=== PATIENT | female | born 1945 | race Caucasian/White ===

== ENCOUNTER → 2016-09-11 | Outpatient (CLI) | payer MEDICARE, MEDICAID ==
--- NOTE | 2016-09-11 19:00 | EKG REPORT ---
SEVERITY:- ABNORMAL ECG - SINUS RHYTHM INCOMPLETE RIGHT BUNDLE BRANCH BLOCK : Confirmed by: Asher Taylor 11-Sep-2016 18:59:34
== END ==
LOC: OD 11:41
PROVIDERS: ATTEND Nurse Practitioner
DX: R06.02 Shortness of breath (principal); I10 Essential (primary) hypertension
CPT/HCPCS: 71020; 93005; 93010

== ENCOUNTER 2017-02-09 13:28 | Emergency (ER) | payer MEDICARE, MEDICAID ==
[2017-02-09 13:39] VITALS: BP 146/80
--- NOTE | 2017-02-09 13:42 | ER Document Report ---
ED Medical Screen (RME) - General Chief Complaint: Breathing Difficulty Stated Complaint: SHORTNESS OF BREATH Time Seen by Provider: 02/09/17 13:39 Mode of Arrival: Ambulatory Information source: Patient TRAVEL OUTSIDE OF THE [place] IN LAST 30 DAYS: No - HPI Patient complains to provider of: Dyspnea on exertion Onset: Yesterday Notes: 02/09/17 13:42 Patient is a 71-year-old female presenting to the emergency room today complaining of dyspnea on exertion that started sometime yesterday, she denies any fevers, no chest pain, no lower extremity edema, she does have a nonproductive cough, no history of similar symptoms previously - Related Data Allergies/Adverse Reactions: acetaminophen [From Darvocet-N 100] Allergy (Verified 02/09/17 13:38) propoxyphene [From Darvon] Allergy (Verified 02/09/17 13:38) Past Medical History Renal/ Medical History: Denies: Hx Peritoneal Dialysis Physical Exam - Vital signs Vitals: Temp Pulse Resp BP Pulse Ox 98.1 F 101 H 20 146/80 H 95 02/09/17 13:35 02/09/17 13:35 02/09/17 13:35 02/09/17 13:35 02/09/17 13:35 Course - Vital Signs Vital signs: Temp Pulse Resp BP Pulse Ox 98.1 F 101 H 20 146/80 H 95 02/09/17 13:35 02/09/17 13:35 02/09/17 13:35 02/09/17 13:35 02/09/17 13:35
--- NOTE | 2017-02-09 14:25 | RADIOLOGY REPORT (SQ) ---
EXAM DESCRIPTION: CHEST PA/LAT COMPLETED DATE/TIME: 02/09/2017 2:16 pm REASON FOR STUDY: sob COMPARISON: 09/11/2016 EXAM PARAMETERS: NUMBER OF VIEWS: two views TECHNIQUE: Digital Frontal and Lateral radiographic views of the chest acquired. RADIATION DOSE: NA LIMITATIONS: none FINDINGS: LUNGS AND PLEURA: The lungs are somewhat hyperexpanded. There is no pulmonary infiltrate or pleural effusion. MEDIASTINUM AND HILAR STRUCTURES: No masses or contour abnormalities. HEART AND VASCULAR STRUCTURES: Heart normal size. No evidence for failure. BONES: No acute findings. HARDWARE: None in the chest. OTHER: No other significant finding. IMPRESSION: NO SIGNIFICANT RADIOGRAPHIC FINDING IN THE CHEST. TECHNICAL DOCUMENTATION: JOB ID: [id number] [employer]- All Rights Reserved
[2017-02-09 14:26] LABS: ABSOLUTE BASOPHILS # (AUTO) 0.1 10^3/uL (0.0-0.2); ABSOLUTE EOSINOPHILS # (AUTO) 0.3 10^3/uL (0.0-0.6); ABSOLUTE LYMPHOCYTES (AUTO) 1.6 10^3/uL (0.5-4.7); ABSOLUTE MONOCYTES (AUTO) 0.6 10^3/uL (0.1-1.4); ABSOLUTE NEUT (AUTO) 4.3 10^3/uL (1.7-8.2); BASOPHILS % (AUTO) 0.9 % (0-2); EOSINOPHILS % (AUTO) 4.9 % (0-6); HEMATOCRIT 39.8 % (36.0-47.0); HEMOGLOBIN 13.4 g/dL (12.0-15.5); HGB HCT DIFFERENCE 0.4; LYMPHOCYTES % (AUTO) 22.8 % (13-45); MEAN CORPUSCULAR HEMOGLOBIN 31.1 pg (27.0-33.4); MEAN CORPUSCULAR HGB CONC 33.7 g/dL (32.0-36.0); MEAN CORPUSCULAR VOLUME 93 fl (80-97); MONOCYTES % (AUTO) 8.2 % (3-13); RED BLOOD COUNT 4.31 10^6/uL (3.72-5.28); RED CELL DISTRIBUTION WIDTH 13.8 % (11.5-14.0); SEGMENTED NEUTROPHILS % (AUTO) 63.2 % (42-78); WHITE BLOOD COUNT 6.8 10^3/uL (4.0-10.5)
[2017-02-09 14:56] LABS: ALANINE AMINOTRANSFERASE 23 U/L (9-52); ALBUMIN 4.4 g/dL (3.5-5.0); ALKALINE PHOSPHATASE 154 U/L (38-126); ANION GAP 11 (5-19); ASPARTATE AMINO TRANSFERASE 27 U/L (14-36); BILIRUBIN,DIRECT 0.4 mg/dL (0.0-0.4); BILIRUBIN,TOTAL 0.5 mg/dL (0.2-1.3); BLOOD UREA NITROGEN 18 mg/dL (7-20); CALCIUM 10.3 mg/dL (8.4-10.2); CARBON DIOXIDE 29 mmol/L (22-30); CHLORIDE 101 mmol/L (98-107); CREATINE KINASE 57 U/L (30-135); CREATININE RESULT 0.55 mg/dL (0.52-1.25); GLUCOSE 128 mg/dL (75-110); POTASSIUM 3.5 mmol/L (3.6-5.0); SODIUM 140.9 mmol/L (137-145); TOTAL PROTEIN 6.4 g/dL (6.3-8.2)
[2017-02-09 15:08] LABS: CREATINE KINASE MB 1.27 ng/mL (<4.55)
[2017-02-09 15:09] LABS: TROPONIN I < 0.012 ng/mL
[2017-02-09] MEDS ORDERED: PREDNISONE 20 MG TABLET PO ONE (15:24)
[2017-02-09] MEDS ORDERED: ALBUTEROL SULFATE 0.083% NEB 2.5 MG/3 ML AMPUL NEB ONE (15:24)
[2017-02-09] MEDS ORDERED: IPRATROPIUM/ALBUTEROL 0.5-2.5 MG/3 ML AMPUL NEB ONE (15:24)
[2017-02-09] MEDS ORDERED: ALBUTEROL SULFATE HFA (90 MCG/PUFF) 8 GM MDI (1 MDI/ER DISP) IH ONE (16:52)
--- NOTE | 2017-02-09 16:55 | ER Document Report ---
ED General - General Chief Complaint: Breathing Difficulty Stated Complaint: SHORTNESS OF BREATH Time Seen by Provider: 02/09/17 13:39 Mode of Arrival: Ambulatory TRAVEL OUTSIDE OF THE [place] IN LAST 30 DAYS: No - HPI Patient complains to provider of: Shortness of breath Notes: Patient coming in for evaluation of shortness of breath. Patient denies any fevers chills nausea vomiting chest pain patient denies a history of smoking patient states started over the last 3 days progressively worse this morning. Patient states mostly dyspnea on exertion. Denies any recent antibiotics. Denies productive cough. Patient is resting comfortably upon my evaluation. - Related Data Allergies/Adverse Reactions: acetaminophen [From Darvocet-N 100] Allergy (Verified 02/09/17 13:38) propoxyphene [From Darvon] Allergy (Verified 02/09/17 13:38) Past Medical History - General Information source: Patient - Social History Smoking Status: Former Smoker Chew tobacco use (# tins/day): No Frequency of alcohol use: Occasional Drug Abuse: None Family History: Reviewed & Not Pertinent Patient has suicidal ideation: No - Past Medical History Cardiac Medical History: Reports: Hx Hypertension Pulmonary Medical History: Reports: Hx Asthma Renal/ Medical History: Denies: Hx Peritoneal Dialysis Past Surgical History: Reports: Hx Abdominal Surgery - hernia repair, Hx Appendectomy, Hx Hysterectomy Review of Systems - Review of Systems Constitutional: No symptoms reported EENT: No symptoms reported Cardiovascular: No symptoms reported Respiratory: Short of breath, Wheezing Gastrointestinal: No symptoms reported Genitourinary: No symptoms reported Female Genitourinary: No symptoms reported Musculoskeletal: No symptoms reported Skin: No symptoms reported Hematologic/Lymphatic: No symptoms reported Neurological/Psychological: No symptoms reported -: Yes All other systems reviewed and negative Physical Exam - Vital signs Vitals: Temp Pulse Resp BP Pulse Ox 98.1 F 101 H 20 146/80 H 95 02/09/17 13:35 02/09/17 13:35 02/09/17 13:35 02/09/17 13:35 02/09/17 13:35 Interpretation: Normal - General General appearance: Appears well, Alert - HEENT Head: Normocephalic, Atraumatic Eyes: Normal Pupils: PERRL - Respiratory Respiratory status: No respiratory distress Chest status: Nontender Breath sounds: Wheezing Chest palpation: Normal - Cardiovascular Rhythm: Regular Heart sounds: Normal auscultation Murmur: No - Abdominal Inspection: Normal Distension: No distension Bowel sounds: Normal Tenderness: Nontender Organomegaly: No organomegaly - Back Back: Normal, Nontender - Extremities General upper extremity: Normal inspection, Nontender, Normal color, Normal ROM , Normal temperature General lower extremity: Normal inspection, Nontender, Normal color, Normal ROM , Normal temperature, Normal weight bearing. No: Paolo's sign - Neurological Neuro grossly intact: Yes Cognition: Normal Orientation: AAOx4 Vina Coma Scale Eye Opening: Spontaneous Steve Coma Scale Verbal: Oriented Steve Coma Scale Motor: Obeys Commands Vina Coma Scale Total: 15 Speech: Normal Motor strength normal: LUE, RUE, LLE, RLE Sensory: Normal - Psychological Associated symptoms: Normal affect, Normal mood - Skin Skin Temperature: Warm Skin Moisture: Dry Skin Color: Normal Course - Re-evaluation Re-evalutation: 02/09/17 18:17 Patient feeling better after breathing treatments more likely underlying reactive airway disease. Patient will be discharged on follow-up primary care physician. - Vital Signs Vital signs: Temp Pulse Resp BP Pulse Ox 98.1 F 101 H 20 146/80 H 95 02/09/17 13:35 02/09/17 13:35 02/09/17 13:35 02/09/17 13:35 02/09/17 13:35 - Laboratory Result Diagrams: 02/09/17 13:55 02/09/17 13:55 Laboratory results interpreted by me: 02/09/17 13:55 Potassium 3.5 L Glucose 128 H Calcium 10.3 H Alkaline Phosphatase 154 H Discharge - Discharge Clinical Impression: Reactive airway disease Qualifiers: Asthma severity: unspecified severity Asthma complication type: uncomplicated Qualified Code(s): J45.909 - Unspecified asthma, uncomplicated Condition: Good Disposition: HOME, SELF-CARE Instructions: Bronchodilators ([facility]), Reactive Airway Disease ([facility]) Additional Instructions: Your laboratory studies not show any signs of significant pathology. More likely you have reactive airway disease which is due to your allergies any air or the weather changes. Please use the inhaler that we gave you here in the ER 2 puffs every 4 hours please take steroids as prescribed return to the ER symptoms worsen. Prescriptions: Prednisone [Deltasone 20 mg Tablet] 3 tab PO DAILY 5 Days tablet Referrals: MANDI,ATRAH, PA-C [Primary Care Provider] - Follow up as needed
--- NOTE | 2017-02-09 17:22 | EKG REPORT ---
SEVERITY:- BORDERLINE ECG - SINUS RHYTHM PROBABLE LEFT ATRIAL ABNORMALITY : Confirmed by: Asher Taylor 09-Feb-2017 17:21:29
== END 2017-02-09 17:37 | disposition home or self-care (01) ==
LOC: ER 13:28
DX: J45.909 Unspecified asthma, uncomplicated (principal); R06.02 Shortness of breath; R06.00 Dyspnea, unspecified; Z87.891 Personal history of nicotine dependence
CPT/HCPCS: 93005; 94640 ×2; 99285; 36415; 82553; 82550; 85025; 80053; 84484; 83880; 71020; 93010; A9270 ×3; J3490; J7512; J7620

== ENCOUNTER 2017-02-19 00:04 | Emergency (ER) | payer MEDICAID, MEDICARE ==
--- NOTE | 2017-02-19 01:09 | ER Document Report ---
ED Respiratory Problem - General Chief Complaint: Breathing Difficulty Stated Complaint: DIFFICULTY BREATHING Time Seen by Provider: 02/19/17 01:05 Notes: The patient is a 71-year-old female who presents with 2 days of cough, wheezing , dyspnea on exertion and now SOB at rest. She had similar symptoms 10 days ago and was started on 5 days of prednisone and albuterol, with relief of her symptoms. Her symptoms have now returned and worsened. She denies cough, hematemesis, hemoptysis, leg swelling, numbness, tingling, chest pain, headache or back pain. TRAVEL OUTSIDE OF THE [place] IN LAST 30 DAYS: No - Related Data Allergies/Adverse Reactions: acetaminophen [From Darvocet-N 100] Allergy (Verified 02/19/17 00:16) propoxyphene [From Darvon] Allergy (Verified 02/19/17 00:16) Past Medical History - General Information source: Patient - Social History Smoking Status: Former Smoker - Quit 12 years ago Family History: Reviewed & Not Pertinent Patient has suicidal ideation: No Patient has homicidal ideation: No - Past Medical History Cardiac Medical History: Reports: Hx Hypertension Pulmonary Medical History: Reports: Hx Asthma Renal/ Medical History: Denies: Hx Peritoneal Dialysis Past Surgical History: Reports: Hx Abdominal Surgery - hernia repair, Hx Appendectomy, Hx Hysterectomy Review of Systems - Review of Systems Notes: REVIEW OF SYSTEMS: CONSTITUTIONAL: -fevers, -chills EENT: -eye pain, -difficulty swallowing, -nasal congestion CARDIOVASCULAR:-chest pain, -syncope. RESPIRATORY: -cough, +SOB GASTROINTESTINAL: -abdominal pain, -nausea, -vomiting, -diarrhea GENITOURINARY: -dysuria, -hematuria MUSCULOSKELETAL: -back pain, -neck pain SKIN: -rash or skin lesions. HEMATOLOGIC: -easy bruising or bleeding. LYMPHATIC: -swollen, enlarged glands. NEUROLOGICAL: -altered mental status or loss of consciousness, -headache, - neurologic symptoms PSYCHIATRIC: -anxiety, -depression. ALL OTHER SYSTEMS REVIEWED AND NEGATIVE. Physical Exam - Vital signs Vitals: Pulse Resp BP Pulse Ox 85 20 127/66 H 93 02/19/17 00:15 02/19/17 00:15 02/19/17 00:15 02/19/17 00:15 - Notes Notes: PHYSICAL EXAMINATION: GENERAL: Well-appearing, well-nourished and in no acute distress. HEAD: Atraumatic, normocephalic. EYES: Pupils equal round and reactive to light, extraocular movements intact, sclera anicteric, conjunctiva are normal. ENT: nares patent, oropharynx clear without exudates. Moist mucous membranes. NECK: Normal range of motion, supple without lymphadenopathy LUNGS: Wheezing in right upper lobe HEART: Regular rate and rhythm without murmurs ABDOMEN: Soft, nontender, normoactive bowel sounds. No guarding, no rebound. No masses appreciated. EXTREMITIES: Normal range of motion, no pitting or edema. No cyanosis. NEUROLOGICAL: Cranial nerves grossly intact. Normal speech, normal gait. Normal sensory and motor exams. PSYCH: Normal mood, normal affect. SKIN: Warm, Dry, normal turgor, no rashes or lesions noted. Course - Re-evaluation Re-evalutation: Patient's wheezing improved after DuoNeb and Solu-Medrol. She has a troponin of 0.986, but no evidence of a STEMI on EKG. Her troponin 10 days ago was negative. Her only symptoms are shortness of breath and dyspnea on exertion, but she never had any chest pain. Patient provided with aspirin and started on Lovenox. Pt also has a leukocytosis, but no evidence of infection. This is most likely related to her recent steroid use. She is requesting transfer to [facility] for further evaluation by interventional cardiology for NSTEMI. Spoke to [facility] at 02:30. 02/19/17 03:43 Spoke to Rivka ([facility]) and she has accepted patient under Dr. Morel's service. Awaiting bed assignment. Pt continues without chest pain. - Vital Signs Vital signs: Temp Pulse Resp BP Pulse Ox 85 17 126/67 H 96 02/19/17 00:15 02/19/17 01:08 02/19/17 01:08 02/19/17 01:08 - Laboratory Result Diagrams: 02/19/17 01:34 02/19/17 01:34 Laboratory results interpreted by me: 02/19/17 02/19/17 01:34 01:34 WBC 14.5 H Abs Neuts (Manual) 11.7 H Sodium 136.1 L Chloride 96 L BUN 21 H Creatinine 0.46 L Glucose 122 H AST 40 H Alkaline Phosphatase 138 H - Diagnostic Test Radiology reviewed: Image reviewed, Reports reviewed Radiology results interpreted by me: CXR: NAD. Emphysematous changes. - EKG Interpretation by Me EKG shows normal: Sinus rhythm, [place], Intervals, QRS Complexes When compared to previous EKG there are: Changes noted Additional EKG results interpreted by me: ST depression in V3-V5, no STEMI Discharge - Discharge Clinical Impression: NSTEMI (non-ST elevated myocardial infarction), KINSEY (dyspnea on exertion) Condition: Stable Disposition: [facility] Referrals: TARAH RAYMOND PA-C [Primary Care Provider] - Follow up as needed
[2017-02-19] MEDS ORDERED: PREDNISONE 20 MG TABLET PO ONE (01:32)
[2017-02-19] MEDS ORDERED: IPRATROPIUM/ALBUTEROL 0.5-2.5 MG/3 ML AMPUL NEB ONE (01:32)
--- NOTE | 2017-02-19 01:48 | RADIOLOGY REPORT (SQ) ---
EXAM DESCRIPTION: CHEST PA/LAT COMPLETED DATE/TIME: 02/19/2017 1:20 am REASON FOR STUDY: sob COMPARISON: 02/09/2017. EXAM PARAMETERS: NUMBER OF VIEWS: two views TECHNIQUE: Digital Frontal and Lateral radiographic views of the chest acquired. RADIATION DOSE: NA LIMITATIONS: none FINDINGS: LUNGS AND PLEURA: No opacities, masses or pneumothorax. No pleural effusion. Moderate emp hysematous hyperinflation. MEDIASTINUM AND HILAR STRUCTURES: No masses or contour abnormalities. HEART AND VASCULAR STRUCTURES: Heart normal size. No evidence for failure. Atherosclerosis. BONES: No acute findings. HARDWARE: None in the chest. OTHER: No other significant finding. IMPRESSION: No acute cardiopulmonary findings. Moderate emphysematous hyperinflation. TECHNICAL DOCUMENTATION: JOB ID: [id number] [employer]- All Rights Reserved
[2017-02-19 02:01] LABS: ALANINE AMINOTRANSFERASE 32 U/L (9-52); ALBUMIN 4.8 g/dL (3.5-5.0); ALKALINE PHOSPHATASE 138 U/L (38-126); ANION GAP 12 (5-19); ASPARTATE AMINO TRANSFERASE 40 U/L (14-36); BILIRUBIN,DIRECT 0.4 mg/dL (0.0-0.4); BILIRUBIN,TOTAL 0.7 mg/dL (0.2-1.3); BLOOD UREA NITROGEN 21 mg/dL (7-20); CALCIUM 9.9 mg/dL (8.4-10.2); CARBON DIOXIDE 28 mmol/L (22-30); CHLORIDE 96 mmol/L (98-107); CREATINE KINASE 73 U/L (30-135); CREATININE RESULT 0.46 mg/dL (0.52-1.25); GLUCOSE 122 mg/dL (75-110); POTASSIUM 4.2 mmol/L (3.6-5.0); SODIUM 136.1 mmol/L (137-145); TOTAL PROTEIN 7.7 g/dL (6.3-8.2)
[2017-02-19 02:02] LABS: VENOUS BLOOD BASE EXCESS -1.7 mmol/L; VENOUS BLOOD HCO3 24.2 mmol/L (20-32); VENOUS BLOOD PCO2 45.1 mmHg (35-63); VENOUS BLOOD PH 7.35 (7.30-7.42)
[2017-02-19 02:08] LABS: HEMATOCRIT 43.3 % (36.0-47.0); HEMOGLOBIN 14.6 g/dL (12.0-15.5); HGB HCT DIFFERENCE 0.5; MEAN CORPUSCULAR HEMOGLOBIN 31.3 pg (27.0-33.4); MEAN CORPUSCULAR HGB CONC 33.6 g/dL (32.0-36.0); MEAN CORPUSCULAR VOLUME 93 fl (80-97); RED BLOOD COUNT 4.65 10^6/uL (3.72-5.28); RED CELL DISTRIBUTION WIDTH 13.6 % (11.5-14.0); WHITE BLOOD COUNT 14.5 10^3/uL (4.0-10.5)
[2017-02-19 02:14] LABS: TROPONIN I 0.949 ng/mL
[2017-02-19 02:16] LABS: BAND NEUTROPHILS % (MANUAL) 4 % (3-5); BASOPHILS % (MANUAL) 0 % (0-2); EOSINOPHILS % (MANUAL) 1 % (0-6); LYMPHOCYTES % (MANUAL) 15 % (13-45); TOTAL CELLS COUNTED 100
[2017-02-19 02:18] LABS: RBC MORPHOLOGY COMMENT NORMO-CYTIC/CHROMIC
[2017-02-19] MEDS ORDERED: ASPIRIN 325 MG TABLET PO ONE (02:22)
[2017-02-19] MEDS ORDERED: ENOXAPARIN SODIUM INJ 80 MG/0.8 ML DISP.SYRIN SUBCUT SCH (02:30)
[2017-02-19] MEDS ORDERED: ENOXAPARIN SODIUM INJ 80 MG/0.8 ML DISP.SYRIN SUBCUT ONE (02:45)
[2017-02-19 03:52] LABS: APPEARANCE,URINE CLEAR; BILIRUBIN,URINE NEGATIVE (NEGATIVE); GLUCOSE, URINE NEGATIVE (NEGATIVE); KETONES,URINE TRACE mg/dL (NEGATIVE); LEUKOCYTE ESTERASE,URINE NEGATIVE (NEGATIVE); NITRITE,URINE NEGATIVE (NEGATIVE); PROTEIN,URINE 30 mg/dL (NEGATIVE); URINE SPECIFIC GRAVITY 1.018; UROBILINOGEN,URINE NEGATIVE mg/dL (<2.0)
[2017-02-19 04:40] VITALS: BP 135/70
--- NOTE | 2017-02-19 08:06 | EKG REPORT ---
SEVERITY:- ABNORMAL ECG - SINUS RHYTHM PROBABLE LEFT ATRIAL ABNORMALITY PROBABLE INFERIOR INFARCT, OLD : Confirmed by: Patricia Molina MD 19-Feb-2017 08:06:08
== END 2017-02-19 04:48 | disposition short-term general hospital (02) ==
LOC: ER 00:04
DX: I21.4 Non-ST elevation (NSTEMI) myocardial infarction (principal); R06.00 Dyspnea, unspecified; R06.02 Shortness of breath; R05 Cough; R06.2 Wheezing; Z87.891 Personal history of nicotine dependence
CPT/HCPCS: 93005; 94640; 99285; 96372; 36415; 82550; 85025; 80053; 81001; 84484; 85379; 82803; 83880; 71020; 93010; A9270 ×3; J1650; J7512; J7620